=== PATIENT | female | born 1990 | race Asian ===

== ENCOUNTER → 2016-09-19 | Outpatient (CLI) | payer SELFPAY | LOC: RAD 15:13 | PROVIDERS: ATTEND Nurse Practitioner Women's Health | DX: Z34.03 Encounter for supervision of normal first pregnancy, third trimester (principal) | CPT/HCPCS: 76805 ==

== ENCOUNTER → 2016-10-08 | Outpatient (CLI) | payer SELFPAY | LOC: RAD 15:26 | PROVIDERS: ATTEND Nurse Practitioner Women's Health | DX: Z34.03 Encounter for supervision of normal first pregnancy, third trimester (principal) | CPT/HCPCS: 76805 ==

== ENCOUNTER 2016-10-11 09:51 | Outpatient (CLI) | payer SELFPAY ==
[2016-10-11 10:26] LABS: AMNISURE (ROM) POSITIVE (NEGATIVE)
[2016-10-11 10:39] LABS: APPEARANCE,URINE SLIGHTLY-CLOUDY; BILIRUBIN,URINE NEGATIVE (NEGATIVE); GLUCOSE, URINE NEGATIVE (NEGATIVE); KETONES,URINE NEGATIVE (NEGATIVE); LEUKOCYTE ESTERASE,URINE MODERATE (NEGATIVE); NITRITE,URINE NEGATIVE (NEGATIVE); PROTEIN,URINE NEGATIVE (NEGATIVE); URINE SPECIFIC GRAVITY 1.008; UROBILINOGEN,URINE NEGATIVE mg/dL (<2.0)
[2016-10-11 10:48] LABS: URINE BARBITURATES SCREEN NEGATIVE; URINE METHADONE SCREEN NEGATIVE; URINE OPIATES LOW NEGATIVE; URINE PHENCYCLIDINE SCREEN NEGATIVE
[2016-10-11] MEDS ORDERED: MAGNESIUM SULFATE 0 GM/0 ML RTUPB IV ONE (11:21)
[2016-10-11] MEDS ORDERED: BETAMET ACET/BETAMET NA INJ 6 MG/1 ML ONE (11:21)
[2016-10-11] MEDS ORDERED: PENICILLIN G-K 5 MILLION UNIT VIAL ONE (11:21)
[2016-10-11] MEDS ORDERED: AMPICILLIN SOD INJ 2 GM VIAL ONE (11:26)
[2016-10-11] MEDS ORDERED: GENTAMICIN SULFATE INJ 80 MG/2 ML VIAL ONE (11:26)
[2016-10-11] MEDS ORDERED: GENTAMICIN SULFATE INJ 80 MG/2 ML VIAL IV ONE (11:31)
[2016-10-11] MEDS ORDERED: AMPICILLIN SOD INJ 2 GM VIAL IV ONE (11:32)
[2016-10-11] MEDS ORDERED: BETAMET ACET/BETAMET NA INJ 6 MG/1 ML IM ONE (11:35)
[2016-10-11] MEDS ORDERED: MAGNESIUM SULFATE/D5W 1 GM/100 ML RTUPB IV PRN (11:37)
--- NOTE | 2016-10-11 12:17 | PDOC TRANSFER SUMMARY ---
General Admission Date/PCP: GRACE MARSHALL NP Transfer Date: 10/11/16 Accepting Facility: [facility] Accepting Physician: Dr. Sims Resuscitation Status: Full Code - Transfer Diagnosis (1) premature rupture of membranes (PPROM) with unknown onset of labor Is this a current diagnosis for this admission?: Yes (2) Hepatitis B Is this a current diagnosis for this admission?: Yes - Transfer Medications Home Medications: Vit #76/Iron,Carb/FA [Prenatabs Rx Tablet] 1 tab PO DAILY 10/11/16 Transfer Medications: Current Medications Magnesium Sulfate (Magnesium Sulfate Rtu 20 Gm/500 Ml Premix) 500 mls @ 0 mls/ hr IV CONTINUOUS PRN; As Directed PRN Reason: THIS MED IS NOT "PRN" Stop: 11/10/16 11:34 Magnesium Sulfate/Dextrose (Magnesium Sulfate Rtu-D5w 1 Gm/100 Ml Premix) 1 gm in 100 mls @ 200 mls/hr IV ONCEP PRN - Allergies Allergies/Adverse Reactions: No Known Allergies Allergy (Unverified 10/11/16 10:04) - Diet/Activity Discharge Diet: Other (Comments) - npo Discharge Activity: Bedrest Hospital Course Hospital Course: PPROM 10/10/16, @ 2100, clear fluid. Presented to [facility] 10/11/16 @ 11 am, + amnisure Reassuring status, Cat 1 SVE: 1-2/40/-2, cephalic No evidence of labor VSS, afebrile, abdomen non-tender. Physical Exam Vital Signs: Intake & Output 10/10/16 10/11/16 10/12/16 06:59 06:59 06:59 Weight 46.9 kg General appearance: PRESENT: no acute distress Respiratory exam: PRESENT: clear to auscultation vincent Cardiovascular exam: PRESENT: RRR Vascular exam: PRESENT: normal capillary refill Results Laboratory Results: 10/11/16 10:00 Urine Color YELLOW Urine Appearance SLIGHTLY-CLOUDY Urine pH 7.0 Ur Specific [place] 1.008 Urine Protein NEGATIVE Urine Glucose (UA) NEGATIVE Urine Ketones NEGATIVE Urine Blood SMALL H Urine Nitrite NEGATIVE Ur Leukocyte Esterase MODERATE H Urine WBC (Auto) 65 Urine RBC (Auto) 4 Impressions: CAT 1 fhts Amnisure + Plan Discharge Plan: Transfer to [facility] Report to Dr. Sims Time Spent: Greater than 30 Minutes
[2016-10-11] MEDS: MAGNESIUM SULFATE 500 ML IV PRN ×2 (12:43→12:49)
== END 2016-10-11 13:14 | disposition short-term general hospital (02) ==
LOC: LC 09:51
PROVIDERS: ATTEND Obstetrics & Gynecology
PROC: 4A1HXCZ Monitoring of Products of Conception, Cardiac Rate, External Approach (ICD-10-PCS; principal; 2016-10-11)
DX: O42.913 Preterm premature rupture of membranes, unspecified as to length of time between rupture and onset of labor, third trimester (principal); Z3A.30 30 weeks gestation of pregnancy
CPT/HCPCS: 59899; 96372; 84112; 81001; 80307; J0290; J1580; J2540; J0702; J3475